=== PATIENT | male | born 1950 | race Caucasian/White ===

== ENCOUNTER 2019-02-15 14:30 | Inpatient (IN) | payer OTHER ==
[~2019-02-15] VITALS: Ht 205.7 cm; Wt 127.0 kg
--- NOTE | 2019-02-15 14:47 | NUR ---
MSE BY DR LOVE
--- NOTE | 2019-02-15 14:59 | NUR ---
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 PT ALSO REPORT ATE BURRITO FROM RESTAURANT THIS AM. PT STS ONLY HS OF BE DM. LOVED ONES AT BEDSIDE AT THIS TIME, PT CONNECTED TO FULL CM.
[2019-02-15 15:42] LABS: BASOPHIL % 0.4 % (0-2); PLATELET COUNT 153 x10^3mcL (130-400); RED CELL DISTRIBUTION WIDTH 13.8 % (11.5-14.5)
[2019-02-15 16:00] LABS: CALCIUM 8.3 mg/dL (8.5-10.1); CARBON DIOXIDE 28.8 mmol/L (21-32); CHLORIDE SERUM 108 mmol/L (98-107); CREATININE SERUM 1.1 mg/dL (0.7-1.3); GFR1 > 60 mL/min; GLUCOSE SERUM 192 mg/dL (74-106); POTASSIUM SERUM 4.5 mmol/L (3.5-5.1); SODIUM SERUM 143 mmol/L (136-145)
--- NOTE | 2019-02-15 16:04 | NUR ---
PT IN JUDIE IN POSITION OF COMFORT, RESP E/U, NO DISTRESS. CALL LIGHT IN REACH.
[2019-02-15 16:05] LABS: ALBUMIN 3.3 g/dL (3.4-5.0); ALKALINE PHOSPHATASE 103 U/L (46-116); ALT/SGPT 27 U/L (16-63); AST/SGOT 20 U/L (15-37); BILIRUBIN TOTAL 0.5 mg/dL (0.20-1.00); TOTAL PROTEIN, SERUM 6.7 g/dL (6.4-8.2)
--- NOTE | 2019-02-15 17:38 | NUR ---
PT AAO4, RESP E/U, NO DISTRESS.
--- NOTE | 2019-02-15 19:14 | NUR ---
PT IN POSITION OF COMFORT; STS STILL SLIGHTLY DIZZY, NO DISTRESS. MEDICATED FOR DIZZINESS.
--- NOTE | 2019-02-15 19:17 | NUR ---
REPORT GIVEN TO SANDRA Bennett TO ASSUME CARE.
[2019-02-15 20:27] LABS: MAGNESIUM 1.6 mg/dL (1.8-2.4)
[2019-02-15 20:28] LABS: CHOLESTEROL/HDL RATIO 2.7
[2019-02-15] MEDS ORDERED: METFORMIN HYDR500 M1 PO (20:29)
--- NOTE | 2019-02-15 20:30 | NUR ---
TELE NEURO MACHINE HAS BEEN SET UP IN PT'S ROOM.
--- NOTE | 2019-02-15 20:30 | NUR ---
REPORT WAS GIVEN. PATIENT TRANSPORTED TO THE ROOM. UNABLE TO DO MED RECON, FAMILY WILL BRING MEDS.
[2019-02-15 20:36] LABS: FREE T4 1.2 ng/dL (0.76-1.46); FREE THYROXINE INDEX 2.5 ug/dL (1.4-4.5); T4(THYROXINE) 6.6 ug/dL (4.7-13.3)
--- NOTE | 2019-02-15 20:36 | NUR ---
RECEIVED PT FROM ED VIA GUERNEY, CAME IN DUE TO VOMITING AND ROOM IS SPINNING 1 HR FOOD PREPARER. PT IS AAOX4. DENIES HEADACHE/DIZZINESS/LIGHTHEADEDNESS. ABLE TO FOLLOW COMMANDS. NO FACIAL DROOP NOTED. NO ARM/LEG DRIFT. HAND MANAGER MSW ARE EQUAL AND STRONG. PUPILS ARE BRISK AND REACTIVE TO LIGHT. NO SOB NOTED, LUNG SOUNDS CTA. DENIES CHEST PAIN/PRESSURE. DENIES ABDOMINAL DISCOMFORT. BOWEL SOUNDS ACTIVE. VOIDS. NOTED PT IS WOBBLY, STATED THAT IT'S BEEN ONGOING FOR 4-5 YEARS. W/ DECREASED SENSATION ON BLE. IV SITES ON THE LEFT WRIST AND LAC GAUGE 20 ARE PATENT AND INTACT. SIDE RAILS UPX2. CALL LIGHT ON REACH. HOB ELEVATED AT 45 DEG. MEDICATION RECONCILIATION DONE. ENDORSED TO PRIMARY NURSE JAMIL FOR CONTINUITY OF CARE.
[2019-02-15 20:46] LABS: microscopic required? YES; urine erythrocyte TRACE (NEGATIVE)
[2019-02-15 20:59] LABS: T3 TOTAL 1.15 ng/mL
[2019-02-15] MEDS ORDERED: GLU850 PO (21:01)
[2019-02-15] MEDS ORDERED: LIPI10 PO (21:01)
[2019-02-15] MEDS ORDERED: THIOCTIC ACID PO (21:01)
[2019-02-15] MEDS ORDERED: [UNRECOGNIZED DRUG - OTHER] PO (21:02)
[2019-02-15] MEDS ORDERED: GLYCINE PO (21:02)
[2019-02-15] MEDS ORDERED: FAMOTIDINE40 MG PO (21:02)
[2019-02-15 21:03] VITALS: BP 175/96
[2019-02-15 21:09] VITALS: Ht 205.7 cm; Wt 127.0 kg
[2019-02-15 21:16] LABS: AMPHETAMINE QUAL UR NONE DETECTED (See below)
--- NOTE | 2019-02-15 21:16 | NUR ---
SPOKE TO NORM TO INITIATE THE TELE-NEURO CONSULT, SHE REQUESTED H AND P TO BE FAXED OVER.
--- NOTE | 2019-02-15 21:47 | NUR ---
AWAKE, WATCHING TV AT THIS TIME. ABLE TO EXPRESS SELF WELL. NO SLURRING OF SPEECH OR FACIAL DROOP NOTED AT THIS TIME. ORIENTED TO NAME, PLACE, TIME AND SITUATION.
--- NOTE | 2019-02-15 21:56 | NUR ---
PT HAD MRI BRAIN W/WO CONTRAST ORDERED BY DR GARCIA IN ED, SPOKE WITH DAVID BHARDWAJ FOR AUTHORIZATION OF MRI, PER DAVID BHARDWAJ, NO CLASSIFIER TENDER , SPOKE WITH DR SANCHEZ AND MADE DR SANCHEZ AWARE OF THAT PT WON'T HAVE MRI BRAIN DONE TIL Sunday, PER DR SANCHEZ SHE WILL LET DR STARKS KNOW AND SHE WILL TRY TO BE IN THE ROOM WITH PT WHILE TELE NEURO DOCTOR CALLS.
--- NOTE | 2019-02-15 22:28 | NUR ---
dr. wiggins in pt's room. pt awake and alert
--- NOTE | 2019-02-15 22:33 | NUR ---
eyes closed, breathing even and unlabored. hob kept elevated 30 deg. call light within easy reach.
--- NOTE | 2019-02-15 22:42 | NUR ---
followed up [facility] regarding status of request for consult. they stated they have a high volume of requests at this time, unable to provide expected time when they can call.
--- NOTE | 2019-02-15 23:15 | NUR ---
eyes closed, breathing unlabored. call light within easy reach
--- NOTE | 2019-02-15 23:23 | NUR ---
TELE NEURO WAS CONDUCTED BY Chasidy RAE. DR. MAN WAS IN PT'S ROOM.
[2019-02-15 23:30] VITALS: BP 148/90
--- NOTE | 2019-02-15 23:44 | NUR ---
[facility] report received, copy given to dr. wiggins.
--- NOTE | 2019-02-16 02:11 | NUR ---
EYES CLOSED, BREATHING EVEN AND UNLABORED. CALL LIGHT WITHIN EASY REACH. HOB KEPT ELEVATED 30DEG. SINUS BRADYCARDIA WITH 1ST DEG BLOCK, HR 50/MIN.
[2019-02-16 05:08] VITALS: BP 139/85
--- NOTE | 2019-02-16 06:16 | NUR ---
INFORMED DR. MAN OF VITAL ORTHOSTATIC RESULTS.
[2019-02-16 06:46] LABS: CALCIUM 8.4 mg/dL (8.5-10.1); CARBON DIOXIDE 26.6 mmol/L (21-32); CHLORIDE SERUM 105 mmol/L (98-107); CREATININE SERUM 1.1 mg/dL (0.7-1.3); GFR1 > 60 mL/min; GLUCOSE SERUM 141 mg/dL (74-106); POTASSIUM SERUM 3.8 mmol/L (3.5-5.1); SODIUM SERUM 141 mmol/L (136-145)
--- NOTE | 2019-02-16 07:05 | NUR ---
EYES CLOSED, BREATHING EVEN AND UNLABORED ON ROOM. SALINE LOCKED TO LEFT AC AND LEFT WRIST, INTACT AND FREE FROM ERYTHEMA OR SWELLING. CALL LIGHT WITHIN EASY REACH. ENDORSED TO NURSE ROSE
[2019-02-16 07:09] LABS: BASOPHIL % 0.3 % (0-2); PLATELET COUNT 149 x10^3mcL (130-400); RED CELL DISTRIBUTION WIDTH 13.9 % (11.5-14.5)
--- NOTE | 2019-02-16 07:12 | NUR ---
REPORT TAKEN FROM POWDER EXPERT NURSE AT THE BEDSIDE, PATIENT SLEEPING AT THIS TIME AND DID NOT WAKE FOR REPORT, CHEST RISE AND FALL OBSEVERED. WILL CONTINUE TO MONITOR.
--- NOTE | 2019-02-16 09:07 | NUR ---
PATIENT RESTING COMFORTABLY AT THIS TIME, MET WITH RESIDENT TEAM, UNDERSTANDS PLAN OF CARE, NO QUESTIONS AT THIS TIME, WILL CONTINUE TO MONITOR.
[2019-02-16 09:25] VITALS: BP 138/78
--- NOTE | 2019-02-16 09:46 | NUR ---
PT ABLE TO AMBULATE TO THE RESTROOM WITHOUT ASSISTANCE, HOWEVER REPORTED MODERATE DIZZINESS WHILE AMBULATING. PT GIVEN URINAL TO USE AT THE BEDSIDE AND ADVISED TO CALL THE NURSE FOR ASSIST WHEN GETTING OUT OF BED.
--- NOTE | 2019-02-16 11:44 | NUR ---
CARDIAC ECHO IN PROGRESS AT THIS TIME,
[2019-02-16 13:54] VITALS: BP 118/77
[2019-02-16 16:33] VITALS: BP 148/76
--- NOTE | 2019-02-16 19:31 | NUR ---
REPORT GIVEN TO COLD HEADER OPERATOR NURSE, CARE ENDORSED
[2019-02-16 19:57] VITALS: BP 136/85
--- NOTE | 2019-02-16 20:06 | NUR ---
RECEVIED RPT FROM ROSE FLORES. PT IS A/O X4. BREATHING IS EVEN AND UNLABORED. NO RESP DISTRESS. PT DENIES DIZZINESS AT THIS TIME. ENCOURAGED PT TO USE CALL LIGHT FOR ASSISTANCE TOT THE RESTROOM IF DIZZY. DENIES CP. NO ACUTE DISTRESS. WILL CONTINUE TO MONITOR.
[2019-02-16 20:26] VITALS: BP 136/85
--- NOTE | 2019-02-16 20:59 | NUR ---
PATIENT SCHED MEDS ADMINISTERED, PATIENT INFORMED ABOUR EACH MEDS ACTIONS AND PURPOSES PRIOR. TOOK PILLS WELL.
--- NOTE | 2019-02-16 23:09 | NUR ---
PT IS ASLEEP. BREATHING IS EVEN AND UNLABORED. NO SIGNS OF RESP DISTRESS. CALL LIGHT WITHIN REACH. BED IN LOWEST POSITION. WILL CONTINUE TO MONITOR.
--- NOTE | 2019-02-17 04:48 | NUR ---
PT IS ASLEEP AND RESTING COMFORTABLY. BREATHING EVEN AND UNLABORED. NO RESP DISTRESS NOTED. CALL LIGHT WITHIN REACH. BED IN LOWEST POSITION. WILL CONTINUE TO MONITOR.
[2019-02-17 05:22] VITALS: BP 154/83
--- NOTE | 2019-02-17 06:04 | NUR ---
PT IS AWAKE AND GRIMACING. C/O PAIN 6/10 ON LEFT ELBOW, STATES IT COULD BE FROM GOUT. MEDICATED WITH TYLENOL. PT COMPLIED WITH NURSING CARE THROUGHOUT THE SHIFT W NO ACUTE EVENTS OVERNIGHT. BREATHING IS EVEN AND UNLABORED. NO RESP DISTRESS NOTED. COMFORT AND SAFETY MEASURES MAINTAINED, ALL NEEDS ASSESSED AND ATTENDED TO, WILL CONTINUE TO MONITOR AND ENDORSE CARE TO DAY SHIFT NURSE.
[2019-02-17 06:23] LABS: PLATELET COUNT 153 x10^3mcL (130-400)
[2019-02-17 06:41] LABS: CALCIUM 8.5 mg/dL (8.5-10.1); CARBON DIOXIDE 28.1 mmol/L (21-32); CHLORIDE SERUM 105 mmol/L (98-107); CREATININE SERUM 1.2 mg/dL (0.7-1.3); GFR1 > 60 mL/min; GLUCOSE SERUM 143 mg/dL (74-106); MAGNESIUM 1.9 mg/dL (1.8-2.4); PHOSPHOROUS 3.9 mg/dL (2.5-4.9); POTASSIUM SERUM 5.1 mmol/L (3.5-5.1); SODIUM SERUM 140 mmol/L (136-145)
[2019-02-17 06:54] LABS: BASOPHIL % 0 % (0-2)
--- NOTE | 2019-02-17 07:36 | NUR ---
ENDORSED CARE TO MAISHA FLORES.
--- NOTE | 2019-02-17 07:37 | NUR ---
DR BREWER MADE AWARE ABOUT NUCLEAR MEDS REQUESTING TO HAVE VQ SCAN RE -ORDERED. STATED WILL PUT NEW ORDER.
--- NOTE | 2019-02-17 08:00 | NUR ---
PATIENT IS ALERT AND ORIENTED TIMES FOUR. NO SLURRING OF SPEECH ADN PATIENT AHS BEEN OOB AND WITH SOME DIZZINESS NOTED BUT DENIES ANY HEADACHE OR WEAKNESS TO THE EXTREMITIES. PATIENT FOR MRI TODAY AND SO FAR NO CALL RECEIVED ON THE TIME. PATIENT HAS VITALS AT THIS TIME AT 154/83, 98%, 8, 52, 98.6. PATIENT NOTED LABS OF BUN AT 19.0, BUN AT 21.0, AND BLOOD SUGAR AT 143. PULSES PALPABLE AND STRONG AND NO EDEMA NOTED. PATIENT AHS DISTENDED AND MODERATELY FIRM ABDOMEN BUT REFUSED COLACE THIS AM. PATIENT HAS BEEN WITH HISTORY OF DIABETES, HLD AND NEUROPATHY TOLERATED CCHO DIET AND NO KNOWN ALLERGIES NOTED. CHEST XRAY NEGATIVE AND THE CT OF THE HEAD DID NOT SHOW ANY BLEED OR INFARCT. AWAITING THE MRI. PATIENT HAS BEEN SINUS RHYTHM AND WITH OCCASION PVCS. NO CHEST PAIN REPORTED AT THIS TIME. NO SOB OR ANY CONFUSION AT THIS TIME. WILL CONTINUE TO MONITOR INDICATED.
[2019-02-17 09:02] VITALS: BP 140/77
--- NOTE | 2019-02-17 10:42 | NUR ---
ASKING AGAIN ABOUT THE MRI AND WILL CALLFRO YANELY PATIETN AHS BEEN ANXIOUS ABOUT HIS POSSIBLE STROKE OR INFARCT. WILL ADVISE THE PATIETN WITH FINDINGS WHEN RECEIVED.
--- NOTE | 2019-02-17 12:47 | NUR ---
PATIENT BLOOD SUGAR AT 163 AND GAVE INSULIN COVERAGE ORDERED. APTIENT GIVEN MTORIN FOR COMPLAINTS OF PAIN AND WILL MONITOR FOR EFFECTIVENESS.
[2019-02-17 13:09] VITALS: BP 145/92
--- NOTE | 2019-02-17 15:25 | NUR ---
PATIENT [id number] AND IN NO ACUTE DISTRESS AT THIS TIME. PATIENT HAS BEEN WITHOUT COMPLAINTS AND HAS BEEN WANTING THE MRI BUT THE MRI STAFF STATES THAT THE THOM WILL NOT BE HERE TILL TOMORROW WHEN CALLED FOR UPDATE. PATIENT HAS NO SLURRED SPEECH AND HAS BEEN GIVEN MOTRIN FOR GOUT PAIN TO THE LEFT ELBOW. WILL MONITOR FOR EFFECTIVENESS.
[2019-02-17 17:48] VITALS: BP 141/83
--- NOTE | 2019-02-17 18:39 | NUR ---
BLOOD SUGAR AT THIS TIME AT 114 AND NO COVERAGE INDICATED. PATIENT IS AWARE FO [facility] MRI STAFF AND THE SCHEDULING NOTED.
[2019-02-17 19:58] VITALS: BP 128/83
--- NOTE | 2019-02-17 20:02 | NUR ---
PATIENT RECEIVED IN BED AWAKE,ALERT AND ORIENTED X4, SPEECH CLEAR, STATED OFF AND ON DIZZINESS STILL, PATIENT INSTRUCTED ABOUT SAFETY PRECAUTIONS, CALL LIGHT PLACED IN REACH. DULL OFF AND ON LEFT ELBOW GOUTY PAIN, RATED AT 3-4/10 NOW, WILL CONTINUE TO MONITOR. TELE#1 SR W/ FIRST DEGREE AVB WITH OCC PAC'S.. PATIENT INFORMED ABOUT POC THIS SHIFT. WILL CONTINUE TO MONITOR.
--- NOTE | 2019-02-17 21:03 | NUR ---
COMPLAINED OF LEFT ELBOW PAIN RATED AT 5/10 MEDICATED PRN. WILL CONTINUE TO MONITOR.
--- NOTE | 2019-02-17 21:30 | NUR ---
PATIENT CHECKED THIS TIME, CLAIMED PAIN TO LEFT ELBOW POST MOTRIN IS SLOWLY SUBSIDING RATED AT 2/10. WILL CONTINUE TO MONITOR.
--- NOTE | 2019-02-17 22:10 | NUR ---
PM SNACK GIVEN PER REQUESTED.
--- NOTE | 2019-02-18 | NUR ---
ROUNDS MADE PATIENT RESTING AND SLEEPING COMFORTABLY, NO DISTRESS NOTED. SAFETY PRECAUTIONS MAINTAINED. WILL CONTINUE TO MONITOR.
--- NOTE | 2019-02-18 05:45 | NUR ---
BS SUGAR CHECKED.
[2019-02-18 06:18] VITALS: BP 112/71
[2019-02-18 06:25] LABS: BASOPHIL % 0.4 % (0-2); PLATELET COUNT 141 x10^3mcL (130-400); RED CELL DISTRIBUTION WIDTH 13.8 % (11.5-14.5)
--- NOTE | 2019-02-18 06:30 | NUR ---
PATIENT CLAIMED THAT HE HAD A RESTFUL AND QUIET NIGHT, SLEPT GOOD. VOIDED WITHOUT DIFF. AMBULATORY TO THE BR. EXPERIENCED OFF AND ON DIZZINESS. HEPLOCK FLUSHED WELL. LEFT ELBOW GOUTY PAIN BETTER THIS AM. SAFETY PRECAUTIONS MAINTAINED. WILL ENDORSE CONTINUITY OF CARE TO INCOMING NURSE.
[2019-02-18 06:52] LABS: CALCIUM 8.3 mg/dL (8.5-10.1); CARBON DIOXIDE 27.5 mmol/L (21-32); CREATININE SERUM 1.3 mg/dL (0.7-1.3); MAGNESIUM 1.9 mg/dL (1.8-2.4)
--- NOTE | 2019-02-18 07:20 | NUR ---
bedside hands off and introduction performed with incoming nurse bee.
--- NOTE | 2019-02-18 07:40 | NUR ---
RECEIVED PATIENT RESTING IN BED, NO ACUTE DISTRESS NOTED. PATIENT ON ROOM AIR, DENIES SOB. PATIENT IS A/OX4, DENIES HEADACHE. SPEECH IS CLEAR. SKI MOLDER EQUAL & STRONG. TELE MONITOR IN PLACE. DENIES CHEST PAIN. PATIENT DENIES PAIN AT THIS TIME. IV TO LH & LAC, SALINE LOCK, IV SITES CDI & PATENT, NO S/S OF INFILTRATION. CALL LIGHT WITHIN REACH, BED IN LOW POSITION, WILL CONTINUE TO MONITOR FOR CHANGES.
--- NOTE | 2019-02-18 08:45 | NUR ---
PHYSICAL THERAPY AT BEDSIDE.
--- NOTE | 2019-02-18 09:38 | NUR ---
PATIENT WENT DOWN FOR MRI.
[2019-02-18 10:21] VITALS: BP 146/80
[2019-02-18 10:23] VITALS: BP 146/80
--- NOTE | 2019-02-18 11:00 | NUR ---
PATIENT IS BACK FROM MRI, TELE MONITOR APPLIED. PHYSICAL THERAPY AT BEDSIDE.
[2019-02-18 12:15] VITALS: BP 133/88
--- NOTE | 2019-02-18 14:36 | NUR ---
PATIENT IS UP AND AMBULATING TO THE BR. PATIENT DENIES PAIN AT THIS TIME. NO ACUTE DISTRESS NOTED AT THIS TIME. ALL NEEDS MET AT THIS TIME. CALL LIGHT WITHIN REACH, BED IN LOW POSITION, WILL CONTINUE TO MONITOR.
[2019-02-18 17:18] VITALS: BP 153/85
--- NOTE | 2019-02-18 18:10 | NUR ---
PATIENT RESTING IN BED, NO ACUTE DISTRESS NOTED. PATIENT DENIES PAIN. ALL NEEDS MET AT THIS TIME. TELE MONITOR IN PLACE. IV TO LH, LAC SALINE LOCK, NO S/S OF INFILTRATION. CALL LIGHT WITHIN REACH, BED IN LOW POSITION, WILL ENDORSE REPORT TO NIGHT NURSE.
--- NOTE | 2019-02-18 19:50 | NUR ---
BEDSIDE HANDS OFF PERFORMED WITH OUT GOING NURSE ANGEL-PATIENT IS AAOX4, SPEECH CLEAR, ON AND OFF DIZZINESS PER STATED, DIRECTOR CUSTOM AND LEG PUSHES EQUAL IN STRENGHT, NO FACIAL DROOP, DENIED HEADACHE, PATIENT UPSET AND UNHAPPY ABOUT NOT BEING INFORM ABOUT RESULT OF MRI AND ALSO NOT GETTING MEDICATED FOR LEFT ELBOW PAIN,ASSURANCE GIVEN, WILL PAGE RESIDENT PRODUCTION ANALYST, WILL MEDICATE. HEPLOCK TO LEFT HAND AND AC PATENT AND INTACT CAP LOCKED. SAFETY PRECAUTIONS MAINTAINED. WILL CONTINUE TO MONITOR.
--- NOTE | 2019-02-18 20:05 | NUR ---
PAGED DR MAN AND RESPONDE BACK AT THIS TIME, INFORMED HIM ABOUT PATIENT REQUEST TO TALK TO MD REGARDING UPDATE OF MRI.
--- NOTE | 2019-02-18 20:34 | NUR ---
CHECKED WITH PATIENT IF MD CAME AND UPDATED HIM WITH MRI RESULT AND POC. PATIENT HAPPY AND SATIFIED MD CAME TO SPEAK TO HIM.
--- NOTE | 2019-02-18 21:07 | NUR ---
COVERED WITH 6 UNITS REG INSULIN PER SLIDING SCALE.
--- NOTE | 2019-02-19 | NUR ---
SLEEPING COMFORTABLY THIS TIME . WILL CONTINUE TO MONITOR.
--- NOTE | 2019-02-19 03:00 | NUR ---
RESTING COMFORTABLY THIS TIME NO DISTRESS. WILL CONTINUE TO MONITOR.
[2019-02-19 05:42] VITALS: BP 168/86
--- NOTE | 2019-02-19 06:53 | NUR ---
PATIENT SLEPT OFF AND ON DURING THE SHIFT,LEFT ELBOW PAIN THIS AM OFFERED PAIN MEDS BUT WAS UPSET WE ARE NOT TREATING HIS PAIN, REFUSED MOTRIN OFFERED. REPORT COMPLAINT TO CHANGE NURSE MARIA TERESA.AMBULATORY WITH STEADY GAIT.ALSO VERBALIZED STILL EXPERIENCIN EPISODE OF DIZZINESS. SAFETY/FALL PRECAUTIONS OBSERVED AND MAINTAINED. WILL ENDORSE CONTINUITY OF CARE TO INCOMING NURSE.
--- NOTE | 2019-02-19 07:29 | NUR ---
REPORT GIVEN TO JOYCE.
--- NOTE | 2019-02-19 07:51 | NUR ---
RECEIVED PATIENT FROM SANDRA HANCOCK. PATIENT IN BED, NO COMPLAINTS OF PAIN AT THIS TIME. WILL AWAIT FINANCIAL RESERVE CLERK MONIE TO COME AND SPEAK WITH PATIENT ABOUT PLAN TODAY. PATIENT AGREES. CALL LIGHT IN REACH AT THIS TIME.
[2019-02-19 08:08] VITALS: BP 151/83
[2019-02-19] MEDS ORDERED: BAY PO (10:30)
--- NOTE | 2019-02-19 10:41 | NUR ---
NATALEE LOMAX STATES THAT PATIENT IS CLEARED TO BE DISCHARGED TODAY. WILL AWAIT DISCHARGE ORDERS TO BE COMPLETED. PATIENT IS AWARE. PATIENT ALSO REFUSED BLOOD DRAW LAB ORDERS HAD NOT BEEN UPDATED DUE TO DISCHARGE.
[2019-02-19 11:07] VITALS: BP 151/83
[2019-02-19 12:26] VITALS: BP 159/83
--- NOTE | 2019-02-19 13:06 | NUR ---
DISCHARGE INSTRUCTIONS AND PACKET GIVEN TO PATIENT. EXPLAINED DISCHARGE AND NEED FOR FU WITH PCP. PATIENT VERBALIZES UNDERSTANDING. TELEMETRY UNIT RETURNED TO [facility], IV CATHETER REMOVED AND INTACT. PATIENT W BELONGINGS WAITING FOR RIDE. SIGNATURES OBTAINED. CALL LIGHT IN REACH AT THIS TIME.
--- NOTE | 2019-02-19 15:04 | NUR ---
PHYSICAL THERAPY DAILY NOTES CO-SIGN All documentation done by the Motor Hotel Manager for 02/19/19 has been reviewed. I agree with the documentation. Reviewed/Co-Signed by: Dee Anand PT Documentation Done by: NE LIN PTA
== END 2019-02-19 13:55 | disposition home or self-care (01) | DRG 67 ==
LOC: ED 14:30 → DU 19:30
PROVIDERS: Emergency Medicine; ADMIT Internal Medicine
DX: I65.23 Occlusion and stenosis of bilateral carotid arteries (principal); N17.0 Acute kidney failure with tubular necrosis; G90.9 Disorder of the autonomic nervous system, unspecified; H55.00 Unspecified nystagmus; E11.65 Type 2 diabetes mellitus with hyperglycemia; E83.42 Hypomagnesemia; Z79.84 Long term (current) use of oral hypoglycemic drugs; Z68.30 Body mass index [BMI] 30.0-30.9, adult
CPT/HCPCS: 82962; 83880; 84439; 97116-GP; 97530-GP; A9577; G0378; J2060; J2405; J7030; J8597; Q0092; Q9967